=== PATIENT | male | born 1980 | race Caucasian/White ===

== ENCOUNTER 2017-03-27 22:04 | Inpatient (IN) | payer OTHER ==
[~2017-03-27] VITALS: Ht 182.9 cm; Wt 76.7 kg
[2017-03-27 23:10] VITALS: BP 99/60; PULSE 69; RESP 18
[2017-03-28] MEDS ORDERED: VANCOMYCIN IV PER PHARMACY XX SCH (00:30)
[2017-03-28] MEDS ORDERED: ACETAMINOPHEN 325 MG TAB PO PRN (00:30)
[2017-03-28] MEDS ORDERED: IBUPROFEN 400 MG TAB PO PRN (00:30)
[2017-03-28] MEDS ORDERED: ONDANSETRON 4 MG INJ IV PRN (00:30)
[2017-03-28] MEDS ORDERED: morphine 10 MG INJ IM PRN (00:30)
[2017-03-28] MEDS ORDERED: PIPER-TAZO 3.375 GM IV (PMX) 100 ML IVPB SCH ×2 (01:00→02:00)
[2017-03-28 02:00] VITALS: BP 123/52; RESP 19
[2017-03-28] MEDS ORDERED: VANCOMYCIN 1.5 GM in SOD CHLORIDE 0.9% 250 ML IVPB SCH (03:00)
[2017-03-28] MEDS: morphine 2 MG INJ IV PRN ×2 (04:16→14:22)
[2017-03-28 06:31] LABS: BASOPHILS % 0.3 % (0.0-2.0); EOSINOPHILS # 0.3 10^3/ul (0.0-0.5); EOSINOPHILS % 2.8 % (0.0-7.0); HEMATOCRIT 34.2 % (42.0-52.0); HEMOGLOBIN 11.3 g/dl (14.0-18.0); LYMPHOCYTES # 2.9 10^3/ul (0.8-2.9); LYMPHOCYTES % 31.3 % (15.0-51.0); MEAN CORPUSCULAR HEMOGLOBIN 29.1 pg (29.0-33.0); MEAN CORPUSCULAR VOLUME 88.1 fl (82.0-101.0); MEAN PLATELET VOLUME 10.3 fl (7.4-10.4); MONOCYTE # 0.9 10^3/ul (0.3-0.9); MONOCYTES % 9.4 % (0.0-11.0); NEUTROPHILS % 56.1 % (39.0-77.0); PLATELET COUNT 260 10^3/UL (140-415); RED BLOOD COUNT 3.88 10^6/ul (4.70-6.10); RED CELL DISTRIBUTION WIDTH 13.2 % (11.5-14.5); WHITE BLOOD COUNT 9.3 10^3/ul (4.8-10.8)
[2017-03-28 07:06] LABS: CALCIUM 8.4 mg/dl (8.4-10.2); CREATININE 0.77 mg/dl (0.61-1.24); POTASSIUM 3.6 mmol/L (3.5-5.1)
[2017-03-28 07:40] VITALS: BP 104/56; RESP 16
[2017-03-28] MEDS ORDERED: FAMOTIDINE 20 MG INJ IV SCH (09:00)
[2017-03-28] MEDS: PIPER-TAZO 3.375 GM IV (PMX) 100 ML IVPB SCH ×3 (09:33→21:36)
[2017-03-28] MEDS: DOCUSATE SODIUM 100 MG CAP PO SCH ×2 (09:33→21:35)
[2017-03-28] MEDS: VANCOMYCIN 1 GM in NS 250 ML IVPB SCH ×2 (11:58→18:00)
--- NOTE | 2017-03-28 12:44 | HP ---
Date/Time of Note Date/Time of Note DATE: 03/28/17 TIME: 12:29 Assessment/Plan VTE Prophylaxis VTE Prophylaxis Intervention: SCD's Lines/Catheters IV Catheter Type (from [facility] Saline Lock Urinary Cath still in place: No Assessment/Plan Chief Complaint/Hosp Course 1. Cellulitis right foot. Numerous wounds right foot. 2. Cellulitis left foot. Numerous wounds left foot. 3. Bipolar disorder type I. 4. Anemia 5. Active Methamphetamine abuse. Problems: Assessment/Plan 1. CT scan both feet 2. Dr Asha Quintanilla for podiatric consult 3. Wound care per hospital protocol 4. telepsych. 5. Zyprexa and wellbutrin XL for bipolar disorder, pt consent was obtained HPI/ROS Admit Date/Time Admit Date/Time Mar 27, 2017 at 23:10 Hx of Present Illness 36 yo male with history of crystal meth abuse for 8 years presented himself in ED [facility]. He was evaluated and transferred to [facility] per insurance coverage. Pt reported that 03/24 he start feeling pain in right foot. He denied trauma, however did not exclude it because he might be high on drugs. Upon presenting to [facility] ER he reported foot ededma, pain and gait imbalance. His left foot has similar wounds and pain, started 1 week ago. denied any trauma. 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 ROS Eyes: no complaints, pain, No discharge, No other, No redness, No visual change ENT: bleeding, no complaints, pain, No congestion, No discharge, No dysphagia, No other, No sore throat Respiratory: cough, no complaints, No other, No pain, No pleuritic pain, No shortness of breath, No sputum, No wheezing Cardiovascular: chest pain, edema, no complaints, No lightheadedness, No orthopenea, No other, No palpitations, No paroxysmal nocturnal dyspnea Gastrointestinal: diarrhea, no complaints, No blood, No constipation, No decreased appetite, No flatus, No nausea, No other, No pain, No passing stool, No vomiting Genitourinary: dysuria, no complaints, No bleeding, No discharge, No flank pain, No hematuria, No other Musculoskeletal: back pain, bone/joint pain, neck pain, no complaints, other, restricted range of motion (both feet), swelling (both feet) Endocrine: polydypsia, polyuria, temp intolerance, No dry skin, No no complaints, No other, No weight change Lymphatic: adenopathy, tender nodes, No lymphadema, No no complaints, No other Psychological: anxiety, confusion, depression, nl mood/affect, no complaints, other, suicidal Immunologic: immunodeficiency, pruritis, No no complaints, No other, No rhinitis, No urticaria PMH/Family/Social Past Medical History pt is single, has no children Medical History: no pertinent history Past Surgical History Past Surgical Hx: other (in young age after dog bit his face he had some suturing on the right side of the face) Family History Significant Family History: no pertinent family hx Social History Alcohol Use: none Smoking Status: Never smoker Drug Use: other (crystal meth smoking) Exam/Review of Systems Vital Signs Vitals Vital Signs Date Time Temp Pulse Resp B/P Pulse Ox O2 Delivery O2 Flow Rate FiO2 03/28/17 07:40 98.5 55 16 104/56 97 03/27/17 23:10 Room Air Intake and Output 03/27/17 03/27/17 03/28/17 15:00 23:00 07:00 Intake Total 1060 ml Output Total 900 ml Balance 160 ml Exam Constitutional: alert, oriented, well developed Psych: depression Head: atraumatic, normocephalic Eyes: EOMI, nl conjunctiva, nl lids ENMT: nl external ears & nose, nl lips & teeth Neck: jvd, supple Respiratory: clear to auscultation, normal air movement Cardiovascular: nl pulses, regular rate and rhythm Gastrointestinal: soft Genitourinary - Male: nl penis, nl scrotum Musculoskeletal: joint tenderness (both ancles), range of motion (decreased ancles and feet), swelling (both feet) Neurological: WEIGHT GUESSER II-XII intact, nl mental status, nl speech, nl strength Skin: nl turgor Labs Result Diagram: 03/28/1744903/28/17449 Medications Medications Current Medications Acetaminophen (Tylenol Tab) 650 mg Q4H PRN PO for pain 1-4 or fever; Start at 00:30 Ibuprofen (Motrin) 400 mg Q4 PRN PO for pain 4-7; Start 03/28/17 at 00:30 Ondansetron HCl (Zofran Inj) 4 mg Q4H PRN IV NAUSEA AND/OR VOMITING; Start at 00:30 Famotidine (Pepcid Iv) 20 mg BID IV Last administered on 03/28/17 09:33; Admin Dose 20 MG; Start 03/28/17 at 09:00 Docusate Sodium 100 mg 100 mg BID PO Last administered on 03/28/17 09:33; Admin Dose 100 MG; Start 03/28/17 at 09:00 Vancomycin HCl 250 ml @ 125 mls/hr Q8H IVPB Last administered on 03/28/17 11: 58; Admin Dose 125 MLS/HR; Start 03/28/17 at 11:00 Piperacillin Sod/ Tazobactam Sod (Zosyn 3.375gm/ 100 ml (Pmx)) 100 ml @ 200 mls /hr Q8 IVPB Last administered on 03/28/17 09:33; Admin Dose 200 MLS/HR; Start 03/28/17 at 06:00 Morphine Sulfate (morphine) 2 mg Q4H PRN IV PAIN LEVEL 8-10 Last administered on 03/28/17 04:16; Admin Dose 2 MG; Start 03/28/17 at 04:30 Miscellaneous Information (*Rx Drug Level Order Reminder*) VANCOMYCIN TROUGH AT 0200 ONCE ONCE XX ; Start 03/29/17 at 02:00; Stop 03/29/17 at 02:01 CHRISSY GREENE Mar 28, 2017 12:41
[2017-03-28] MEDS: BUSPIRONE 5 MG TAB PO SCH ×2 (13:53→21:35)
[2017-03-28] MEDS: BUPROPION (XL) 150 MG TAB PO SCH (13:53)
[2017-03-28 14:25] VITALS: BP 109/55; RESP 16
[2017-03-28 20:43] VITALS: BP 121/61; RESP 18
[2017-03-28] MEDS: OLANZAPINE 5 MG TAB PO SCH (21:35)
[2017-03-28] MEDS: FAMOTIDINE 20 MG TAB PO SCH (21:35)
[2017-03-29 03:04] VITALS: BP 116/61; RESP 16
[2017-03-29] MEDS: VANCOMYCIN 1 GM in NS 250 ML IVPB SCH ×3 (03:22→21:37)
[2017-03-29] MEDS: PIPER-TAZO 3.375 GM IV (PMX) 100 ML IVPB SCH ×3 (05:48→21:38)
[2017-03-29 06:33] LABS: CALCIUM 9.2 mg/dl (8.4-10.2); CREATININE 0.78 mg/dl (0.61-1.24)
[2017-03-29 08:00] VITALS: BP_SYST 110; BP_SYST 118; BP_DIAS 64; RESP 18
[2017-03-29 08:51] LABS: BASOPHILS % 0.3 % (0.0-2.0); EOSINOPHILS # 0.2 10^3/ul (0.0-0.5); EOSINOPHILS % 1.8 % (0.0-7.0); HEMATOCRIT 35.7 % (42.0-52.0); HEMOGLOBIN 11.7 g/dl (14.0-18.0); LYMPHOCYTES # 2.8 10^3/ul (0.8-2.9); LYMPHOCYTES % 24.9 % (15.0-51.0); MEAN CORPUSCULAR HEMOGLOBIN 29.3 pg (29.0-33.0); MEAN CORPUSCULAR HGB CONC 32.8 g/dl (32.0-37.0); MEAN CORPUSCULAR VOLUME 89.3 fl (82.0-101.0); MEAN PLATELET VOLUME 10.4 fl (7.4-10.4); MONOCYTE # 0.9 10^3/ul (0.3-0.9); MONOCYTES % 7.7 % (0.0-11.0); NEUTROPHILS % 64.9 % (39.0-77.0); PLATELET COUNT 259 10^3/UL (140-415); RED CELL DISTRIBUTION WIDTH 13.3 % (11.5-14.5); WHITE BLOOD COUNT 11.4 10^3/ul (4.8-10.8)
[2017-03-29] MEDS: OLANZAPINE 5 MG TAB PO SCH (08:58)
[2017-03-29] MEDS: BUPROPION (XL) 150 MG TAB PO SCH (08:58)
[2017-03-29] MEDS: DOCUSATE SODIUM 100 MG CAP PO SCH ×2 (08:58→21:37)
[2017-03-29] MEDS: BUSPIRONE 5 MG TAB PO SCH ×2 (08:58→21:37)
[2017-03-29] MEDS: FAMOTIDINE 20 MG TAB PO SCH ×2 (09:35→21:37)
--- NOTE | 2017-03-29 11:53 | RADRPT ---
PROCEDURE: CT of the bilateral lower extremities CLINICAL INDICATION: Lower extremity pain and swelling, concern for cellulitis TECHNIQUE: Axial images through the bilateral lower extremities without IV contrast. Coronal and sagittal reformats. Images were interpreted at an independent PACS workstation. CTDI 18.48 mGy DLP 105 3.47 mGy-cm One or more of the following dose reduction techniques were used: Automated exposure control Adjustment of the mA and / or kV according to patient size Use of iterative reconstruction technique. COMPARISON: None available FINDINGS: There is mild to moderate nonspecific subcutaneous soft tissue swelling involving the right greater than left lower calf , ankle, and foot (axial 158). There is no evidence of soft tissue gas. There is no discrete drainable fluid collection on this noncontrast CT. There is no CT evidence of acute fracture. Alignment appears normal. Bone mineralization is normal . There is no muscle atrophy. IMPRESSION: 1. Mild to moderate right greater than left subcutaneous soft tissue swelling at the lower calf, an kle and foot. Query cellulitis. 2. No evidence of soft tissue gas or drainable fluid collection on this noncontrast CT. 3. No acute osseous abnormality or CT evidence of osteomyelitis. RPTAT: UU .Vasiliy Black MD, MD Date Time Electronically viewed and signed by .Vasiliy Black MD, on 03/29/2017 11:53 .K/
[2017-03-29] MEDS: morphine 2 MG INJ IV PRN ×3 (13:05→22:38)
[2017-03-29 14:24] VITALS: BP 110/59; RESP 16
--- NOTE | 2017-03-29 18:46 | PN ---
Date/Time of Note Date/Time of Note DATE: 03/29/17 TIME: 18:45 Assessment/Plan VTE Prophylaxis VTE Prophylaxis Intervention: ambulation, contraindicated Lines/Catheters IV Catheter Type (from Nrs): Peripheral IV Urinary Cath still in place: No Assessment/Plan Chief Complaint/Hosp Course 1 Cellulitis right foot. Numerous wounds right foot. 2. Cellulitis left foot. Numerous wounds left foot. 3. Bipolar disorder type I. 4. Anemia 5. Active Methamphetamine abuse. Problems: Assessment/Plan 1. CT scan negative for abscess or OM 2. Dr Asha Quintanilla for podiatric consult 3. Wound care per hospital protocol 4. telepsych. 5. Zyprexa and wellbutrin XL for bipolar disorder, 6 I.D consult Problems: Subjective 24 Hr Interval Summary Free Text/Dictation Pain improving Exam/Review of Systems Vital Signs Vitals Vital Signs Date Time Temp Pulse Resp B/P Pulse Ox O2 Delivery O2 Flow Rate FiO2 03/29/17 14:24 98.6 61 16 110/59 95 03/27/17 23:10 Room Air Intake and Output 03/28/17 03/28/17 03/29/17 15:00 23:00 07:00 Intake Total 350 ml 1440 ml 1030 ml Output Total 1500 ml Balance 350 ml 1440 ml -470 ml Exam Constitutional: alert Head: normocephalic Neck: supple Respiratory: clear to auscultation Cardiovascular: regular rate and rhythm Musculoskeletal: other (ble wrapped) Results Result Diagram: 03/29/17 0440 03/29/17 0440 Results 24 hrs Laboratory Tests Test 03/29/17 02:00 03/29/17 04:40 Vancomycin Level Trough 10.7 White Blood Count 11.4 #H Red Blood Count 4.00 L Hemoglobin 11.7 L Hematocrit 35.7 L Mean Corpuscular Volume 89.3 Mean Corpuscular Hemoglobin 29.3 Mean Corpuscular Hemoglobin Concent 32.8 Red Cell Distribution Width 13.3 Platelet Count 259 Mean Platelet Volume 10.4 Neutrophils % 64.9 Lymphocytes % 24.9 Monocytes % 7.7 Eosinophils % 1.8 Basophils % 0.3 Nucleated Red Blood Cells % 0.0 Neutrophils # (Manual) 7 Lymphocytes # 2.8 Monocytes # 0.9 Eosinophils # 0.2 Basophils # 0.0 Nucleated Red Blood Cells # 0.0 Sodium Level 144 Potassium Level 4.0 Chloride Level 100 Carbon Dioxide Level 30 Anion Gap 18 H Blood Urea Nitrogen 7 Creatinine 0.78 Glucose Level 86 Calcium Level 9.2 Medications Medications Current Medications Acetaminophen (Tylenol Tab) 650 mg Q4H PRN PO for pain 1-4 or fever; Start at 00:30 Ibuprofen (Motrin) 400 mg Q4 PRN PO for pain 4-7; Start 03/28/17 at 00:30 Ondansetron HCl (Zofran Inj) 4 mg Q4H PRN IV NAUSEA AND/OR VOMITING; Start at 00:30 Docusate Sodium 100 mg 100 mg BID PO Last administered on 03/29/17 08:58; Admin Dose 100 MG; Start 03/28/17 at 09:00 Piperacillin Sod/ Tazobactam Sod (Zosyn 3.375gm/ 100 ml (Pmx)) 100 ml @ 200 mls /hr Q8 IVPB Last administered on 03/29/17 16:03; Admin Dose 200 MLS/HR; Start 03/28/17 at 06:00 Morphine Sulfate (morphine) 2 mg Q4H PRN IV PAIN LEVEL 8-10 Last administered on 03/29/17 17:45; Admin Dose 2 MG; Start 03/28/17 at 04:30 Olanzapine (Zyprexa) 10 mg DAILY PO Last administered on 03/29/17 08:58; Admin Dose 10 MG; Start 03/28/17 at 21:00 Bupropion HCl (Wellbutrin Xl) 150 mg DAILY PO Last administered on 03/29/17 08 :58; Admin Dose 150 MG; Start 03/28/17 at 13:00 Buspirone HCl (Buspar) 5 mg BID PO Last administered on 03/29/17 08:58; Admin Dose 5 MG; Start 03/28/17 at 14:00 Famotidine (Pepcid) 20 mg BID PO Last administered on 03/29/17 09:35; Admin Dose 20 MG; Start 03/28/17 at 21:00 Mupirocin 1 applic 1 applic BID TOP ; Start 03/29/17 at 21:00 Vancomycin HCl (Vancocin) 250 ml @ 125 mls/hr Q8H IVPB ; Start 03/29/17 at 21: 00 SUKHDEV TRAN MD Mar 29, 2017 18:46
[2017-03-29 20:54] VITALS: BP 111/55; RESP 22
[2017-03-29] MEDS: MUPIROCIN 2% 22 GM OINT TOP SCH (21:37)
[2017-03-30 03:00] VITALS: BP 105/59; RESP 19
[2017-03-30] MEDS: VANCOMYCIN 1 GM in NS 250 ML IVPB SCH ×3 (05:06→20:58)
[2017-03-30 05:40] LABS: BASOPHILS % 0.5 % (0.0-2.0); EOSINOPHILS # 0.3 10^3/ul (0.0-0.5); EOSINOPHILS % 3.2 % (0.0-7.0); HEMATOCRIT 35.3 % (42.0-52.0); HEMOGLOBIN 11.5 g/dl (14.0-18.0); LYMPHOCYTES # 2.8 10^3/ul (0.8-2.9); LYMPHOCYTES % 33.3 % (15.0-51.0); MEAN CORPUSCULAR HEMOGLOBIN 28.8 pg (29.0-33.0); MEAN CORPUSCULAR HGB CONC 32.6 g/dl (32.0-37.0); MEAN CORPUSCULAR VOLUME 88.5 fl (82.0-101.0); MEAN PLATELET VOLUME 10.2 fl (7.4-10.4); MONOCYTE # 0.7 10^3/ul (0.3-0.9); MONOCYTES % 8.6 % (0.0-11.0); PLATELET COUNT 257 10^3/UL (140-415); RED BLOOD COUNT 3.99 10^6/ul (4.70-6.10); RED CELL DISTRIBUTION WIDTH 13.2 % (11.5-14.5); WHITE BLOOD COUNT 8.5 10^3/ul (4.8-10.8)
[2017-03-30 06:16] LABS: CALCIUM 8.9 mg/dl (8.4-10.2); CREATININE 0.84 mg/dl (0.61-1.24); POTASSIUM 3.7 mmol/L (3.5-5.1)
[2017-03-30] MEDS: PIPER-TAZO 3.375 GM IV (PMX) 100 ML IVPB SCH ×3 (07:05→23:25)
[2017-03-30] MEDS: BUPROPION (XL) 150 MG TAB PO SCH (08:10)
[2017-03-30] MEDS: BUSPIRONE 5 MG TAB PO SCH ×2 (08:10→20:58)
[2017-03-30] MEDS: DOCUSATE SODIUM 100 MG CAP PO SCH ×2 (08:10→20:58)
[2017-03-30] MEDS: OLANZAPINE 5 MG TAB PO SCH ×2 (08:10→21:04)
[2017-03-30] MEDS: morphine 2 MG INJ IV PRN ×3 (08:11→22:09)
[2017-03-30] MEDS: MUPIROCIN 2% 22 GM OINT TOP SCH ×2 (08:11→20:59)
[2017-03-30] MEDS: FAMOTIDINE 20 MG TAB PO SCH ×2 (08:11→20:58)
[2017-03-30 10:57] VITALS: BP 113/57; RESP 18
--- NOTE | 2017-03-30 15:09 | PN ---
Date/Time of Note Date/Time of Note DATE: 03/30/17 TIME: 15:04 Assessment/Plan VTE Prophylaxis VTE Prophylaxis Intervention: LMWH Lines/Catheters IV [facility] Type (from [facility]): Saline Lock Urinary Cath still in place: No Assessment/Plan Chief Complaint/Hosp Course Physcial exam Constitutional: alert Head: normocephalic Neck: supple Respiratory: clear to auscultation Cardiovascular: regular rate and rhythm Musculoskeletal: Rt foot warm, tender, well circumscribed wound between between 1st and 2metatarsal, left foot 1st metatarsal and 2 wound 36 y/o with 1 Cellulitis right foot. with wound inside 1st and 2nd metatarsal 2. Cellulitis left foot+1 st metatar 3. Bipolar disorder type I. 4. Anemia 5. Active Methamphetamine abuse. Problems: Assessment/Plan 1. CT scan negative for abscess or OM 2. On iv Vanco/zosyn 3. Wound care per hospital protocol 4. telepsych. 5. Zyprexa and wellbutrin XL for bipolar disorder, 6 Pending ID recs Problems: Subjective 24 Hr Interval Summary Free Text/Dictation Pain in rt foot more >left Exam/Review of Systems Vital Signs Vitals Vital Signs Date Time Temp Pulse Resp B/P Pulse Ox O2 Delivery O2 Flow Rate FiO2 03/30/17 10:57 97.9 53 18 113/57 96 03/27/17 23:10 Room Air Intake and Output 03/29/17 03/29/17 03/30/17 15:00 23:00 07:00 Intake Total 3540 ml 1210 ml Output Total 950 ml 1500 ml 680 ml Balance -950 ml 2040 ml 530 ml Results Result Diagram: 03/30/17 0455 03/30/17 0455 Results 24 hrs Laboratory Tests Test 03/30/17 04:55 White Blood Count 8.5 # Red Blood Count 3.99 L Hemoglobin 11.5 L Hematocrit 35.3 L Mean Corpuscular Volume 88.5 Mean Corpuscular Hemoglobin 28.8 L Mean Corpuscular Hemoglobin Concent 32.6 Red Cell Distribution Width 13.2 Platelet Count 257 Mean Platelet Volume 10.2 Neutrophils % 54.0 Lymphocytes % 33.3 Monocytes % 8.6 Eosinophils % 3.2 Basophils % 0.5 Nucleated Red Blood Cells % 0.0 Neutrophils # (Manual) 5 Lymphocytes # 2.8 Monocytes # 0.7 Eosinophils # 0.3 Basophils # 0.0 Nucleated Red Blood Cells # 0.0 Sodium Level 142 Potassium Level 3.7 Chloride Level 105 Carbon Dioxide Level 29 Anion Gap 12 Blood Urea Nitrogen 11 Creatinine 0.84 Glucose Level 95 Calcium Level 8.9 Medications Medications Current Medications Acetaminophen (Tylenol Tab) 650 mg Q4H PRN PO for pain 1-4 or fever; Start at 00:30 Ibuprofen (Motrin) 400 mg Q4 PRN PO for pain 4-7; Start 03/28/17 at 00:30 Ondansetron HCl (Zofran Inj) 4 mg Q4H PRN IV NAUSEA AND/OR VOMITING; Start at 00:30 Docusate Sodium 100 mg 100 mg BID PO Last administered on 03/30/17 08:10; Admin Dose 100 MG; Start 03/28/17 at 09:00 Piperacillin Sod/ Tazobactam Sod (Zosyn 3.375gm/ 100 ml (Pmx)) 100 ml @ 200 mls /hr Q8 IVPB Last administered on 03/30/17 07:05; Admin Dose 200 MLS/HR; Start 03/28/17 at 06:00 Morphine Sulfate (morphine) 2 mg Q4H PRN IV PAIN LEVEL 8-10 Last administered on 03/30/17 08:11; Admin Dose 2 MG; Start 03/28/17 at 04:30 Bupropion HCl (Wellbutrin Xl) 150 mg DAILY PO Last administered on 03/30/17 08 :10; Admin Dose 150 MG; Start 03/28/17 at 13:00 Buspirone HCl (Buspar) 5 mg BID PO Last administered on 03/30/17 08:10; Admin Dose 5 MG; Start 03/28/17 at 14:00 Famotidine (Pepcid) 20 mg BID PO Last administered on 03/30/17 08:11; Admin Dose 20 MG; Start 03/28/17 at 21:00 Mupirocin 1 applic 1 applic BID TOP Last administered on 03/30/17 08:11; Admin Dose 1 APPLIC; Start 03/29/17 at 21:00 Vancomycin HCl (Vancocin) 250 ml @ 125 mls/hr Q8H IVPB Last administered on 12:14; Admin Dose 125 MLS/HR; Start 03/29/17 at 21:00 Olanzapine (Zyprexa) 10 mg QHS PO ; Start 03/30/17 at 21:00 SUKHDEV TRAN MD Mar 30, 2017 15:08
[2017-03-30] MEDS: ENOXAPARIN 40 MG/0.4 ML SYG SC SCH (15:45)
[2017-03-30 17:09] VITALS: BP 102/57; RESP 20
--- NOTE | 2017-03-30 17:37 | RADRPT ---
PROCEDURE: US Lower extremity arterial. CLINICAL INDICATION: peripheral arterial disease, claudication, leg pain TECHNIQUE: Multiple sonographic images of the bilateral lower extremity arteries were obtained uti lizing grayscale, color-flow and doppler imaging. The images were reviewed on a PACS workstation. COMPARISON: None. FINDINGS: There is no significant calcific plaque. Velocities and waveforms were obtained as described below. RIGHT LEG: Right common femoral artery: 148 cm/s; triphasic waveforms Right proximal superficial femoral artery: 123.4 cm/s; triphasic waveforms Right mid superficial femoral artery: 103.2 cm/s; triphasic waveforms Right distal superficial femoral artery: 96.9 cm/s; triphasic waveforms Right popliteal artery: 78 cm/s; triphasic waveforms Right posterior tibial artery: 87 cm/s; triphasic waveforms Right dorsalis pedis artery: 88 cm/s; triphasic waveforms Right DOLORES: 1.18 LEFT LEG: Left common femoral artery: 125 cm/s; triphasic waveforms Left proximal superficial femoral artery: 130.1 cm/s; triphasic waveforms Left mid superficial femoral artery: 110.1 cm/s; triphasic waveforms Left distal superficial femoral artery: 84.5 cm/s; triphasic waveforms Left popliteal artery: 71 cm/s; triphasic waveforms Left posterior tibial artery: 112 cm/s; triphasic waveforms Left dorsalis pedis artery: 66 cm/s; triphasic waveforms Left DOLORES: 1.18 RPTAT: AA IMPRESSION: Unremarkable bilateral lower extremity arterial Doppler ultrasound. .Alen Tamez MD, MD Date Time Electronically viewed and signed by .Alen Tamez MD, MD on 03/30/2017 17:37 .S/
[2017-03-30 20:18] VITALS: BP 114/53; RESP 21
--- NOTE | 2017-03-30 23:34 | CONS ---
Date/Time of Note Date/Time of Note DATE: 03/30/17 TIME: 23:33 Consultation Date/Type/Reason Admit Date/Time Mar 27, 2017 at 23:10 Eyes: no complaints, pain, No discharge, No other, No redness, No visual change ENT: bleeding, no complaints, pain, No congestion, No discharge, No dysphagia, No other, No sore throat Respiratory: cough, no complaints, No other, No pain, No pleuritic pain, No shortness of breath, No sputum, No wheezing Cardiovascular: chest pain, edema, no complaints, No lightheadedness, No orthopenea, No other, No palpitations, No paroxysmal nocturnal dyspnea Gastrointestinal: diarrhea, no complaints, No blood, No constipation, No decreased appetite, No flatus, No nausea, No other, No pain, No passing stool, No vomiting Genitourinary: dysuria, no complaints, No bleeding, No discharge, No flank pain, No hematuria, No other Musculoskeletal: back pain, bone/joint pain, neck pain, no complaints, other, restricted range of motion (both feet), swelling (both feet) Lymphatic: adenopathy, tender nodes, No lymphadema, No no complaints, No other Psychological: depression Immunologic: immunodeficiency, pruritis, No no complaints, No other, No rhinitis, No urticaria Past Medical History Medical History: no pertinent history Past Surgical History Past Surgical Hx: other (in young age after dog bit his face he had some suturing on the right side of the face) Social History Alcohol Use: none Smoking Status: Never smoker Drug Use: other (crystal meth smoking) Exam/Review of Systems Vital Signs Vitals Vital Signs Date Time Temp Pulse Resp B/P Pulse Ox O2 Delivery O2 Flow Rate FiO2 03/30/17 20:18 98.4 57 21 114/53 94 03/27/17 23:10 Room Air Intake and Output 03/29/17 03/29/17 03/30/17 15:00 23:00 07:00 Intake Total 3540 ml 1210 ml Output Total 950 ml 1500 ml 680 ml Balance -950 ml 2040 ml 530 ml Results Result Diagram: 03/30/17 0455 03/30/17 0455 Results 24 hrs Laboratory Tests Test 03/30/17 04:55 White Blood Count 8.5 # Red Blood Count 3.99 L Hemoglobin 11.5 L Hematocrit 35.3 L Mean Corpuscular Volume 88.5 Mean Corpuscular Hemoglobin 28.8 L Mean Corpuscular Hemoglobin Concent 32.6 Red Cell Distribution Width 13.2 Platelet Count 257 Mean Platelet Volume 10.2 Neutrophils % 54.0 Lymphocytes % 33.3 Monocytes % 8.6 Eosinophils % 3.2 Basophils % 0.5 Nucleated Red Blood Cells % 0.0 Neutrophils # (Manual) 5 Lymphocytes # 2.8 Monocytes # 0.7 Eosinophils # 0.3 Basophils # 0.0 Nucleated Red Blood Cells # 0.0 Sodium Level 142 Potassium Level 3.7 Chloride Level 105 Carbon Dioxide Level 29 Anion Gap 12 Blood Urea Nitrogen 11 Creatinine 0.84 Glucose Level 95 Calcium Level 8.9 Medications Medications Current Medications Acetaminophen (Tylenol Tab) 650 mg Q4H PRN PO for pain 1-4 or fever; Start at 00:30 Ibuprofen (Motrin) 400 mg Q4 PRN PO for pain 4-7; Start 03/28/17 at 00:30 Ondansetron HCl (Zofran Inj) 4 mg Q4H PRN IV NAUSEA AND/OR VOMITING; Start at 00:30 Docusate Sodium 100 mg 100 mg BID PO Last administered on 03/30/17 20:58; Admin Dose 100 MG; Start 03/28/17 at 09:00 Piperacillin Sod/ Tazobactam Sod (Zosyn 3.375gm/ 100 ml (Pmx)) 100 ml @ 200 mls /hr Q8 IVPB Last administered on 03/30/17 23:25; Admin Dose 200 MLS/HR; Start 03/28/17 at 06:00 Morphine Sulfate (morphine) 2 mg Q4H PRN IV PAIN LEVEL 8-10 Last administered on 03/30/17 22:09; Admin Dose 2 MG; Start 03/28/17 at 04:30 Bupropion HCl (Wellbutrin Xl) 150 mg DAILY PO Last administered on 03/30/17 08 :10; Admin Dose 150 MG; Start 03/28/17 at 13:00 Buspirone HCl (Buspar) 5 mg BID PO Last administered on 03/30/17 20:58; Admin Dose 5 MG; Start 03/28/17 at 14:00 Famotidine (Pepcid) 20 mg BID PO Last administered on 03/30/17 20:58; Admin Dose 20 MG; Start 03/28/17 at 21:00 Mupirocin 1 applic 1 applic BID TOP Last administered on 03/30/17 20:59; Admin Dose 1 APPLIC; Start 03/29/17 at 21:00 Vancomycin HCl (Vancocin) 250 ml @ 125 mls/hr Q8H IVPB Last administered on 20:58; Admin Dose 125 MLS/HR; Start 03/29/17 at 21:00 Olanzapine (Zyprexa) 10 mg QHS PO Last administered on 03/30/17 21:04; Admin Dose 10 MG; Start 03/30/17 at 21:00 Enoxaparin Sodium (Lovenox) 40 mg DAILY SC Last administered on 03/30/17 15:45 ; Admin Dose 40 MG; Start 03/30/17 at 15:30 PRADIP LOVE DPM Mar 30, 2017 23:33
[2017-03-31 02:59] VITALS: BP 103/59; RESP 18
--- NOTE | 2017-03-31 03:22 | CONS ---
DATE OF ADMISSION: 03/27/2017 DATE OF CONSULTATION: 03/30/2017 REASON FOR CONSULTATION: Antibiotic management. HISTORY OF PRESENT ILLNESS: Galileo De Santiago a 36-year-old male who is admitted with cellulitis of the right foot and is being seen for antibiotic management. The patient is a 36-year-old with a history of crystal methamphetamine abuse for 8 years. He presented to [facility] and transferred to [facility] for insurance coverage. He started feeling pain in his right foot. He denied trauma. He presented to [facility] emergency room with edema of his foot with pain and imbalance. He is found to have cellulitis of the right foot with numerous wounds, cellulitis of the left foot as well. Additional problems include bipolar disorder, anemia, and active methamphetamine abuse. Dr. Guillermo Barry was asked to see him for podiatric consultation. Had a CT scan of both feet. PAST MEDICAL HISTORY: Operations as outlined. FAMILY HISTORY: Noncontributory. SOCIAL HISTORY: He does not smoke, but he does use crystal meth. ALLERGIES: NONE TO PENICILLIN, SULFA, OR FOODS. MEDICATION: Per chart. REVIEW OF SYSTEMS: As per HPI. PHYSICAL EXAMINATION: GENERAL: The patient is well developed, well-nourished male, who is sleeping but arousable, in no acute distress. VITAL SIGNS: Stable. He is afebrile. SKIN: Without generalized rash. HEENT: Within normal limits. NECK: Supple. Lymph nodes are nonpalpable. CHEST: Decreased breath sounds at the bases. HEART: Without murmur or gallop. ABDOMEN: Soft and nontender without organosplenomegaly or masses. EXTREMITIES: He has joint tenderness in both ankles and swelling of both feet. RECTAL: Deferred. NEUROLOGICAL: No focal neurological abnormalities. DIAGNOSTICS: His white count was 9.3, H and H of 11.3 and 34.2, platelet count 260,000. BUN and creatinine is 10/0.77. A lower extremity CT scan showed mild to moderate right greater than left subcutaneous soft tissue swelling of the lower calf, ankle, and foot, query cellulitis. No evidence of soft tissue gas or drainable fluid collection. No acute osseous abnormality or CT evidence of osteomyelitis. White count is 8.5 today. Toxicology, patient is on vancomycin. BUN and creatinine is 11/0.84. PLAN: His medications include vancomycin and Zosyn. We will continue him on this regimen. I will dictate my findings to the hospitalist and also to Dr. Davis and to Jerri Vargas. Dictated By: Alton Moser MD JD/bridget/pan /Document#: [id number]
[2017-03-31] MEDS: VANCOMYCIN 1 GM in NS 250 ML IVPB SCH ×3 (04:19→20:49)
[2017-03-31] MEDS: PIPER-TAZO 3.375 GM IV (PMX) 100 ML IVPB SCH ×3 (06:35→23:22)
[2017-03-31] MEDS: BUSPIRONE 5 MG TAB PO SCH ×2 (08:43→20:49)
[2017-03-31] MEDS: FAMOTIDINE 20 MG TAB PO SCH ×2 (08:43→20:49)
[2017-03-31] MEDS: DOCUSATE SODIUM 100 MG CAP PO SCH ×2 (08:43→20:49)
[2017-03-31] MEDS: BUPROPION (XL) 150 MG TAB PO SCH (08:43)
[2017-03-31] MEDS: ENOXAPARIN 40 MG/0.4 ML SYG SC SCH (08:46)
[2017-03-31] MEDS: MUPIROCIN 2% 22 GM OINT TOP SCH ×2 (08:48→20:50)
[2017-03-31 08:57] VITALS: BP 113/68; RESP 18
[2017-03-31] MEDS: morphine 2 MG INJ IV PRN ×3 (09:11→20:59)
[2017-03-31 14:08] VITALS: BP 121/74; RESP 20
--- NOTE | 2017-03-31 14:31 | PN ---
Date/Time of Note Date/Time of Note DATE: 03/31/17 TIME: 14:29 Assessment/Plan VTE Prophylaxis VTE Prophylaxis Intervention: LMWH Lines/Catheters IV Catheter Type (from Nrs): Saline Lock Urinary Cath still in place: No Assessment/Plan Chief Complaint/Hosp Course Physcial exam Constitutional: alert Head: normocephalic Neck: supple Respiratory: clear to auscultation Cardiovascular: regular rate and rhythm Musculoskeletal: Rt foot warm, tender, well circumscribed wound between between 1st and 2metatarsal, left foot 1st metatarsal and 2 wound 36 y/o with 1 Cellulitis right foot. with wound inside 1st and 2nd metatarsal 2. Cellulitis left foot+1 st metatar 3. Bipolar disorder type I. 4. Anemia 5. Active Methamphetamine abuse. Problems: Assessment/Plan 1. CT scan negative for abscess or OM 2. On iv Vanco, zosyn stopped 3. Wound care per hospital protocol 4. Zyprexa and wellbutrin XL for bipolar disorder, 6 Pending ID recs Problems: Subjective 24 Hr Interval Summary Free Text/Dictation No new complains See by Podiatry and ID Exam/Review of Systems Vital Signs Vitals Vital Signs Date Time Temp Pulse Resp B/P Pulse Ox O2 Delivery O2 Flow Rate FiO2 03/31/17 14:08 98.4 74 20 121/74 97 03/27/17 23:10 Room Air Intake and Output 03/30/17 03/30/17 03/31/17 15:00 23:00 07:00 Intake Total 600 ml 1310 ml 1070 ml Balance 600 ml 1310 ml 1070 ml Results Result Diagram: 03/30/17 0455 03/30/17 0455 Medications Medications Current Medications Acetaminophen (Tylenol Tab) 650 mg Q4H PRN PO for pain 1-4 or fever; Start at 00:30 Ibuprofen (Motrin) 400 mg Q4 PRN PO for pain 4-7; Start 03/28/17 at 00:30 Ondansetron HCl (Zofran Inj) 4 mg Q4H PRN IV NAUSEA AND/OR VOMITING; Start at 00:30 Docusate Sodium 100 mg 100 mg BID PO Last administered on 03/31/17t 08:43; Admin Dose 100 MG; Start 03/28/17 at 09:00 Piperacillin Sod/ Tazobactam Sod (Zosyn 3.375gm/ 100 ml (Pmx)) 100 ml @ 200 mls /hr Q8 IVPB Last administered on 03/31/17 06:35; Admin Dose 200 MLS/HR; Start 03/28/17 at 06:00 Morphine Sulfate (morphine) 2 mg Q4H PRN IV PAIN LEVEL 8-10 Last administered on 03/31/17 09:11; Admin Dose 2 MG; Start 03/28/17 at 04:30 Bupropion HCl (Wellbutrin Xl) 150 mg DAILY PO Last administered on 03/31/17 08 :43; Admin Dose 150 MG; Start 03/28/17 at 13:00 Buspirone HCl (Buspar) 5 mg BID PO Last administered on 03/31/17 08:43; Admin Dose 5 MG; Start 03/28/17 at 14:00 Famotidine (Pepcid) 20 mg BID PO Last administered on 03/31/17 08:43; Admin Dose 20 MG; Start 03/28/17 at 21:00 Mupirocin 1 applic 1 applic BID TOP Last administered on 03/31/17 08:48; Admin Dose 1 APPLIC; Start 03/29/17 at 21:00 Vancomycin HCl (Vancocin) 250 ml @ 125 mls/hr Q8H IVPB Last administered on 12:06; Admin Dose 125 MLS/HR; Start 03/29/17 at 21:00 Olanzapine (Zyprexa) 10 mg QHS PO Last administered on 03/30/17 21:04; Admin Dose 10 MG; Start 03/30/17 at 21:00 Enoxaparin Sodium (Lovenox) 40 mg DAILY SC Last administered on 03/31/17 08:46 ; Admin Dose 40 MG; Start 03/30/17 at 15:30 Miscellaneous Information (*Rx Drug Level Order Reminder*) VANCOMYCIN TROUGH ON 03/11... ONCE ONCE XX ; Start 04/01/17 at 04:00; Stop 04/01/17 at 04:01 SUKHDEV TRAN MD Mar 31, 2017 14:31
--- NOTE | 2017-03-31 20:12 | PN ---
DATE: 03/31/2017 SUBJECTIVE DATA: No events overnight. The patient is alert, complaining of right lower extremity pain. No fevers. WBC yesterday was 8.5, no shift, no bands. BUN 11, creatinine 0.84. Microbiology: Nares swab came back positive for MRSA. Antimicrobials: Vancomycin, Zosyn, topical Bactroban. Diagnostics: Lower extremity CT scan revealed mild to moderate right, greater than left, subcutaneous soft tissue swelling at the lower calf, ankle and foot. No evidence of soft tissue gas or drainable fluid collection. No acute osseus abnormality, or CT scan evidence of osteomyelitis. PHYSICAL EXAMINATION: GENERAL: Well developed, well nourished, middle-aged man who is alert, in no distress. HEENT: Head atraumatic, normocephalic. Sclerae anicteric. Buccal mucosa pink. NECK: Supple. CHEST: Rise symmetrical. Breath sounds clear. HEART: S1, S2. ABDOMEN: Soft, bowel sounds present. EXTREMITIES: Right lower extremity erythema and swelling below- knee, with pain on palpation. ASSESSMENT: 1. Right lower extremity cellulitis. 2. Methicillin-resistant Staphylococcus aureus nares colonization. PLAN: The patient remains stable, on appropriate coverage. So far there is no evidence of a fracture or for DVT. Will continue keeping his right lower extremity elevated. Follow Podiatry recommendations and await for clinical improvement. Dictated By: Jaylen Siu NP /bridget/laureen /Document#: [id number]
[2017-03-31] MEDS: OLANZAPINE 5 MG TAB PO SCH (20:49)
[2017-03-31 21:30] VITALS: BP 116/61; RESP 20
[2017-04-01 04:11] LABS: BASOPHIL # 0.1 10^3/ul (0.0-0.1); BASOPHILS % 0.8 % (0.0-2.0); EOSINOPHILS # 0.3 10^3/ul (0.0-0.5); EOSINOPHILS % 4.5 % (0.0-7.0); HEMATOCRIT 37.6 % (42.0-52.0); HEMOGLOBIN 12.1 g/dl (14.0-18.0); LYMPHOCYTES % 39.4 % (15.0-51.0); MEAN CORPUSCULAR HEMOGLOBIN 28.4 pg (29.0-33.0); MEAN CORPUSCULAR HGB CONC 32.2 g/dl (32.0-37.0); MEAN CORPUSCULAR VOLUME 88.3 fl (82.0-101.0); MEAN PLATELET VOLUME 10.1 fl (7.4-10.4); MONOCYTE # 0.6 10^3/ul (0.3-0.9); MONOCYTES % 7.8 % (0.0-11.0); PLATELET COUNT 267 10^3/UL (140-415); RED BLOOD COUNT 4.26 10^6/ul (4.70-6.10); RED CELL DISTRIBUTION WIDTH 13.4 % (11.5-14.5); WHITE BLOOD COUNT 7.5 10^3/ul (4.8-10.8)
[2017-04-01] MEDS: VANCOMYCIN 1 GM in NS 250 ML IVPB SCH ×3 (05:23→21:30)
[2017-04-01] MEDS: PIPER-TAZO 3.375 GM IV (PMX) 100 ML IVPB SCH (07:38)
[2017-04-01 08:27] VITALS: BP 117/59; RESP 18
[2017-04-01] MEDS: MUPIROCIN 2% 22 GM OINT TOP SCH ×2 (09:11→22:00)
[2017-04-01] MEDS: BUPROPION (XL) 150 MG TAB PO SCH (09:11)
[2017-04-01] MEDS: BUSPIRONE 5 MG TAB PO SCH ×2 (09:11→21:35)
[2017-04-01] MEDS: DOCUSATE SODIUM 100 MG CAP PO SCH ×2 (09:11→21:00)
[2017-04-01] MEDS: morphine 2 MG INJ IV PRN (09:11)
[2017-04-01] MEDS: FAMOTIDINE 20 MG TAB PO SCH ×2 (09:11→21:31)
[2017-04-01] MEDS: ENOXAPARIN 40 MG/0.4 ML SYG SC SCH (09:14)
[2017-04-01 14:00] VITALS: BP 113/58; RESP 20
--- NOTE | 2017-04-01 15:18 | CONS ---
Date/Time of Note Date/Time of Note DATE: 04/01/17 TIME: 15:15 Assessment/Plan Assessment/Plan Chief Complaint/Hosp Course Physcial exam Constitutional: alert Head: normocephalic Neck: supple Respiratory: clear to auscultation Cardiovascular: regular rate and rhythm Musculoskeletal: Rt foot warm, tender, well circumscribed wound between between 1st and 2metatarsal, left foot 1st metatarsal and 2 wound 36 y/o with 1 Cellulitis right foot. with wound inside 1st and 2nd metatarsal 2. Cellulitis left foot+1 st metatar 3. Bipolar disorder type I. 4. Anemia 5. Active Methamphetamine abuse. Problems: Assessment/Plan 1. CT scan negative for abscess or OM 2. 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 4 Zyprexa and wellbutrin XL for bipolar disorder 5 GI/ DVT prophylaxsis Problems: Consultation Date/Type/Reason Admit Date/Time Mar 27, 2017 at 23:10 Initial Consult Date 24 HR Interval Summary Free Text/Dictation Sometimes pain in left foot Exam/Review of Systems Vital Signs Vitals Vital Signs Date Time Temp Pulse Resp B/P Pulse Ox O2 Delivery O2 Flow Rate FiO2 04/01/17 08:27 98.6 73 18 117/59 96 Intake and Output 03/31/17 03/31/17 04/01/17 15:00 23:00 07:00 Intake Total 100 ml 1880 ml 450 ml Output Total 1800 ml Balance 100 ml 80 ml 450 ml Results Result Diagram: 04/01/17 0343 03/30/17 0455 Results 24 hrs Laboratory Tests Test 04/01/17 03:43 White Blood Count 7.5 Red Blood Count 4.26 L Hemoglobin 12.1 L Hematocrit 37.6 L Mean Corpuscular Volume 88.3 Mean Corpuscular Hemoglobin 28.4 L Mean Corpuscular Hemoglobin Concent 32.2 Red Cell Distribution Width 13.4 Platelet Count 267 Mean Platelet Volume 10.1 Neutrophils % 47.0 Lymphocytes % 39.4 Monocytes % 7.8 Eosinophils % 4.5 Basophils % 0.8 Nucleated Red Blood Cells % 0.0 Neutrophils # (Manual) 4 Lymphocytes # 3.0 H Monocytes # 0.6 Eosinophils # 0.3 Basophils # 0.1 Nucleated Red Blood Cells # 0.0 Vancomycin Level Trough 10.8 Medications Medications Current Medications Acetaminophen (Tylenol Tab) 650 mg Q4H PRN PO for pain 1-4 or fever; Start at 00:30 Ibuprofen (Motrin) 400 mg Q4 PRN PO for pain 4-7; Start 03/28/17 at 00:30 Ondansetron HCl (Zofran Inj) 4 mg Q4H PRN IV NAUSEA AND/OR VOMITING; Start at 00:30 Docusate Sodium (Colace) 100 mg BID PO Last administered on 04/01/17 09:11; Admin Dose 100 MG; Start 03/28/17 at 09:00 Morphine Sulfate (morphine) 2 mg Q4H PRN IV PAIN LEVEL 8-10 Last administered on 04/01/17 09:11; Admin Dose 2 MG; Start 03/28/17 at 04:30 Bupropion HCl (Wellbutrin Xl) 150 mg DAILY PO Last administered on 04/01/17 09 :11; Admin Dose 150 MG; Start 03/28/17 at 13:00 Buspirone HCl (Buspar) 5 mg BID PO Last administered on 04/01/17 09:11; Admin Dose 5 MG; Start 03/28/17 at 14:00 Famotidine (Pepcid) 20 mg BID PO Last administered on 04/01/17 09:11; Admin Dose 20 MG; Start 03/28/17 at 21:00 Mupirocin 1 applic 1 applic BID TOP Last administered on 04/01/17 09:11; Admin Dose 1 APPLIC; Start 03/29/17 at 21:00 Vancomycin HCl (Vancocin) 250 ml @ 125 mls/hr Q8H IVPB Last administered on 12:32; Admin Dose 125 MLS/HR; Start 03/29/17 at 21:00 Olanzapine (Zyprexa) 10 mg QHS PO Last administered on 03/31/17 20:49; Admin Dose 10 MG; Start 03/30/17 at 21:00 Enoxaparin Sodium (Lovenox) 40 mg DAILY SC Last administered on 04/01/17 09:14 ; Admin Dose 40 MG; Start 03/30/17 at 15:30 SUKHDEV TRAN MD Apr 01, 2017 15:18
--- NOTE | 2017-04-01 15:53 | CONS ---
Date/Time of Note Date/Time of Note DATE: 04/01/17 TIME: 15:51 Assessment/Plan Assessment/Plan Chief Complaint/Hosp Course SUBJECTIVE DATA: No events overnight. The patient is alert, no fevers, nad Microbiology: Nares swab came back positive for MRSA. Antimicrobials: Vancomycin, Zosyn, topical Bactroban. Diagnostics: Lower extremity CT scan revealed mild to moderate right, greater than left, subcutaneous soft tissue swelling at the lower calf, ankle and foot. No evidence of soft tissue gas or drainable fluid collection. No acute osseus abnormality, or CT scan evidence of osteomyelitis. PHYSICAL EXAMINATION: GENERAL: Well developed, well nourished, middle-aged man who is alert, in no distress. HEENT: Head atraumatic, normocephalic. Sclerae anicteric. Buccal mucosa pink. NECK: Supple. CHEST: Rise symmetrical. Breath sounds clear. HEART: S1, S2. ABDOMEN: Soft, bowel sounds present. EXTREMITIES: Right lower extremity erythema and swelling resolved ASSESSMENT: 1. Right lower extremity cellulitis==> resolving. 2. Methicillin-resistant Staphylococcus aureus nares colonization. PLAN: The patient remains stable, ok dc on oral Bactrim for 7 more days Problems: Consultation Date/Type/Reason Admit Date/Time Mar 27, 2017 at 23:10 Initial Consult Date Type of Consultation: ID Exam/Review of Systems Vital Signs Vitals Vital Signs Date Time Temp Pulse Resp B/P Pulse Ox O2 Delivery O2 Flow Rate FiO2 04/01/17 08:27 98.6 73 18 117/59 96 Intake and Output 03/31/17 03/31/17 04/01/17 15:00 23:00 07:00 Intake Total 100 ml 1880 ml 450 ml Output Total 1800 ml Balance 100 ml 80 ml 450 ml Results Result Diagram: 04/01/17 0343 03/30/17 0455 Results 24 hrs Laboratory Tests Test 04/01/17 03:43 White Blood Count 7.5 Red Blood Count 4.26 L Hemoglobin 12.1 L Hematocrit 37.6 L Mean Corpuscular Volume 88.3 Mean Corpuscular Hemoglobin 28.4 L Mean Corpuscular Hemoglobin Concent 32.2 Red Cell Distribution Width 13.4 Platelet Count 267 Mean Platelet Volume 10.1 Neutrophils % 47.0 Lymphocytes % 39.4 Monocytes % 7.8 Eosinophils % 4.5 Basophils % 0.8 Nucleated Red Blood Cells % 0.0 Neutrophils # (Manual) 4 Lymphocytes # 3.0 H Monocytes # 0.6 Eosinophils # 0.3 Basophils # 0.1 Nucleated Red Blood Cells # 0.0 Vancomycin Level Trough 10.8 Medications Medications Current Medications Acetaminophen (Tylenol Tab) 650 mg Q4H PRN PO for pain 1-4 or fever; Start at 00:30 Ibuprofen (Motrin) 400 mg Q4 PRN PO for pain 4-7; Start 03/28/17 at 00:30 Ondansetron HCl (Zofran Inj) 4 mg Q4H PRN IV NAUSEA AND/OR VOMITING; Start at 00:30 Docusate Sodium (Colace) 100 mg BID PO Last administered on 04/01/17 09:11; Admin Dose 100 MG; Start 03/28/17 at 09:00 Morphine Sulfate (morphine) 2 mg Q4H PRN IV PAIN LEVEL 8-10 Last administered on 04/01/17 09:11; Admin Dose 2 MG; Start 03/28/17 at 04:30 Bupropion HCl (Wellbutrin Xl) 150 mg DAILY PO Last administered on 04/01/17 09 :11; Admin Dose 150 MG; Start 03/28/17 at 13:00 Buspirone HCl (Buspar) 5 mg BID PO Last administered on 04/01/17 09:11; Admin Dose 5 MG; Start 03/28/17 at 14:00 Famotidine (Pepcid) 20 mg BID PO Last administered on 04/01/17 09:11; Admin Dose 20 MG; Start 03/28/17 at 21:00 Mupirocin 1 applic 1 applic BID TOP Last administered on 04/01/17 09:11; Admin Dose 1 APPLIC; Start 03/29/17 at 21:00 Vancomycin HCl (Vancocin) 250 ml @ 125 mls/hr Q8H IVPB Last administered on 12:32; Admin Dose 125 MLS/HR; Start 03/29/17 at 21:00 Olanzapine (Zyprexa) 10 mg QHS PO Last administered on 03/31/17 20:49; Admin Dose 10 MG; Start 03/30/17 at 21:00 Enoxaparin Sodium (Lovenox) 40 mg DAILY SC Last administered on 04/01/17t 09:14 ; Admin Dose 40 MG; Start 03/30/17 at 15:30 ARCHANA DELUNA NP Apr 01, 2017 15:53
--- NOTE | 2017-04-01 17:12 | PN ---
Date/Time of Note Date/Time of Note DATE: 04/01/17 TIME: 17:10 Assessment/Plan Lines/Catheters IV Catheter Type (from [facility]): Saline Lock [place] in Place (from [facility]): No Assessment/Plan Problems: (1) Open wound of right foot (2) Open wound of left foot Assessment/Plan Daily dressing change bilateral feet. Silver Silvadene ointment to the wounds daily. Change bandages daily. Weightbearing to tolerance with postop shoes to both feet. Patient will be followed in-house. Exam/Review of Systems Vital Signs Vitals Vital Signs Date Time Temp Pulse Resp B/P Pulse Ox O2 Delivery O2 Flow Rate FiO2 04/01/17 14:00 98.1 73 20 113/58 97 Intake and Output 03/31/17 03/31/17 04/01/17 15:00 23:00 07:00 Intake Total 100 ml 1880 ml 450 ml Output Total 1800 ml Balance 100 ml 80 ml 450 ml Results Result Diagram: 04/01/17 0343 03/30/17 0455 PRADIP LOVE DPM Apr 01, 2017 17:12
[2017-04-01 20:00] VITALS: BP 123/81; RESP 18
[2017-04-01] MEDS: OLANZAPINE 5 MG TAB PO SCH (21:31)
[2017-04-02 02:00] VITALS: BP 107/62; RESP 19
[2017-04-02] MEDS: VANCOMYCIN 1 GM in NS 250 ML IVPB SCH ×3 (04:07→20:17)
[2017-04-02 07:40] VITALS: BP 112/65; RESP 16
[2017-04-02] MEDS: SILVER SULFADIAZINE 1% 25 GM CR TOP SCH (09:28)
[2017-04-02] MEDS: ENOXAPARIN 40 MG/0.4 ML SYG SC SCH (09:28)
[2017-04-02] MEDS: FAMOTIDINE 20 MG TAB PO SCH ×2 (09:29→20:18)
[2017-04-02] MEDS: BUPROPION (XL) 150 MG TAB PO SCH (09:29)
[2017-04-02] MEDS: DOCUSATE SODIUM 100 MG CAP PO SCH ×2 (09:29→20:19)
[2017-04-02] MEDS: BUSPIRONE 5 MG TAB PO SCH ×2 (09:29→20:17)
[2017-04-02] MEDS: MUPIROCIN 2% 22 GM OINT TOP SCH ×2 (09:31→20:18)
[2017-04-02] MEDS: morphine 2 MG INJ IV PRN ×2 (11:06→20:26)
[2017-04-02 14:09] VITALS: BP 108/57; RESP 16
--- NOTE | 2017-04-02 18:05 | PN ---
Date/Time of Note Date/Time of Note DATE: 04/02/17 TIME: 18:03 Assessment/Plan VTE Prophylaxis VTE Prophylaxis Intervention: LMWH Lines/Catheters IV Catheter Type (from Nrs): Saline Lock Urinary Cath still in place: No Assessment/Plan Chief Complaint/Hosp Course Physcial exam Constitutional: alert Head: normocephalic Neck: supple Respiratory: clear to auscultation Cardiovascular: regular rate and rhythm Musculoskeletal: Rt foot warm, tender, well circumscribed wound between between 1st and 2metatarsal, left foot 1st metatarsal and 2 wound 36 y/o with 1 Cellulitis right foot. with wound inside 1st and 2nd metatarsal 2. Cellulitis left foot+1 st metatar 3. Bipolar disorder type I. 4. Anemia 5. Active Methamphetamine abuse. Problems: Assessment/Plan 1. CT scan negative for abscess or OM 2. 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 4 Zyprexa and wellbutrin XL for bipolar disorder 5 GI/ DVT prophylaxsis 6 Possible dc tmw Problems: Subjective 24 Hr Interval Summary Free Text/Dictation Pain in rt and left foot Exam/Review of Systems Vital Signs Vitals Vital Signs Date Time Temp Pulse Resp B/P Pulse Ox O2 Delivery O2 Flow Rate FiO2 04/02/17 14:09 98.0 16 108/57 98 04/02/17 07:40 68 Intake and Output 04/01/17 04/01/17 04/02/17 15:00 23:00 07:00 Intake Total 600 ml 1150 ml Balance 600 ml 1150 ml Results Result Diagram: 04/01/17 0343 03/30/17 0455 Medications Medications Current Medications Acetaminophen (Tylenol Tab) 650 mg Q4H PRN PO for pain 1-4 or fever; Start at 00:30 Ibuprofen (Motrin) 400 mg Q4 PRN PO for pain 4-7; Start 03/28/17 at 00:30 Ondansetron HCl (Zofran Inj) 4 mg Q4H PRN IV NAUSEA AND/OR VOMITING; Start at 00:30 Docusate Sodium (Colace) 100 mg BID PO Last administered on 04/02/17t 09:29; Admin Dose 100 MG; Start 03/28/17 at 09:00 Morphine Sulfate (morphine) 2 mg Q4H PRN IV PAIN LEVEL 8-10 Last administered on 04/02/17 11:06; Admin Dose 2 MG; Start 03/28/17 at 04:30 Bupropion HCl (Wellbutrin Xl) 150 mg DAILY PO Last administered on 04/02/17 09 :29; Admin Dose 150 MG; Start 03/28/17 at 13:00 Buspirone HCl (Buspar) 5 mg BID PO Last administered on 04/02/17 09:29; Admin Dose 5 MG; Start 03/28/17 at 14:00 Famotidine (Pepcid) 20 mg BID PO Last administered on 04/02/17 09:29; Admin Dose 20 MG; Start 03/28/17 at 21:00 Mupirocin 1 applic 1 applic BID TOP Last administered on 04/02/17 09:31; Admin Dose 1 APPLIC; Start 03/29/17 at 21:00 Vancomycin HCl (Vancocin) 250 ml @ 125 mls/hr Q8H IVPB Last administered on 13:09; Admin Dose 125 MLS/HR; Start 03/29/17 at 21:00 Olanzapine (Zyprexa) 10 mg QHS PO Last administered on 04/01/17 21:31; Admin Dose 10 MG; Start 03/30/17 at 21:00 Enoxaparin Sodium (Lovenox) 40 mg DAILY SC Last administered on 04/02/17 09:28 ; Admin Dose 40 MG; Start 03/30/17 at 15:30 Silver Sulfadiazine (Thermazene 1% 25 Gm) 1 applic DAILY TOP Last administered on 04/02/17 09:28; Admin Dose 1 APPLIC; Start 04/02/17 at 09:00 SUKHDEV TRAN MD Apr 02, 2017 18:04
[2017-04-02] MEDS: OLANZAPINE 5 MG TAB PO SCH (20:18)
[2017-04-02 20:46] VITALS: BP 119/59; RESP 19
[2017-04-03 02:00] VITALS: BP 96/52; RESP 18
[2017-04-03] MEDS: VANCOMYCIN 1 GM in NS 250 ML IVPB SCH ×2 (04:06→13:11)
[2017-04-03 06:09] LABS: BASOPHIL # 0.1 10^3/ul (0.0-0.1); BASOPHILS % 0.8 % (0.0-2.0); EOSINOPHILS # 0.3 10^3/ul (0.0-0.5); EOSINOPHILS % 4.4 % (0.0-7.0); HEMATOCRIT 37.9 % (42.0-52.0); LYMPHOCYTES # 2.9 10^3/ul (0.8-2.9); LYMPHOCYTES % 41.3 % (15.0-51.0); MEAN CORPUSCULAR HEMOGLOBIN 28.1 pg (29.0-33.0); MEAN CORPUSCULAR HGB CONC 31.7 g/dl (32.0-37.0); MEAN CORPUSCULAR VOLUME 88.8 fl (82.0-101.0); MONOCYTE # 0.7 10^3/ul (0.3-0.9); MONOCYTES % 9.8 % (0.0-11.0); NEUTROPHILS % 42.1 % (39.0-77.0); PLATELET COUNT 271 10^3/UL (140-415); RED BLOOD COUNT 4.27 10^6/ul (4.70-6.10); RED CELL DISTRIBUTION WIDTH 13.3 % (11.5-14.5); WHITE BLOOD COUNT 7.1 10^3/ul (4.8-10.8)
[2017-04-03 06:44] LABS: CALCIUM 9.4 mg/dl (8.4-10.2); CREATININE 0.73 mg/dl (0.61-1.24)
[2017-04-03 07:35] VITALS: BP 109/59; RESP 16
[2017-04-03] MEDS: ENOXAPARIN 40 MG/0.4 ML SYG SC SCH (09:00)
[2017-04-03] MEDS ORDERED: TRIMETHOPRIM/SULFAMETHOX (SS) TAB PO SCH ×2 (09:00→21:00)
[2017-04-03] MEDS: BUSPIRONE 5 MG TAB PO SCH (09:43)
[2017-04-03] MEDS: BUPROPION (XL) 150 MG TAB PO SCH (09:43)
[2017-04-03] MEDS: FAMOTIDINE 20 MG TAB PO SCH (09:43)
[2017-04-03] MEDS: DOCUSATE SODIUM 100 MG CAP PO SCH (09:43)
[2017-04-03] MEDS: SILVER SULFADIAZINE 1% 25 GM CR TOP SCH (09:44)
[2017-04-03] MEDS: MUPIROCIN 2% 22 GM OINT TOP SCH (09:45)
--- NOTE | 2017-04-03 10:44 | PN ---
Date/Time of Note Date/Time of Note DATE: 04/03/17 TIME: 10:41 Assessment/Plan VTE Prophylaxis VTE Prophylaxis Intervention: ambulation Lines/Catheters IV Catheter Type (from [facility]): Saline Lock Urinary Cath still in place: No Assessment/Plan Chief Complaint/Hosp Course 1. Cellulitis right foot. Numerous wounds right foot.Resolved 2. Cellulitis left foot. Numerous wounds left foot.Resolved 3. Bipolar disorder type I, stable on medications 4. Anemia 5. Active Methamphetamine abuse. Problems: Assessment/Plan 1. Discharge home 2. continue a/b and wound custodial 3. Pt is medically cleared and capable to participate in active residential treatment Subjective 24 Hr Interval Summary Constitutional: improved, no complaints Respiratory: no complaints Cardiovascular: no complaints Musculoskeletal: bone/joint pain, No back pain, No neck pain, No no complaints, No other, No restricted range of motion, No swelling Exam/Review of Systems Vital Signs Vitals Vital Signs Date Time Temp Pulse Resp B/P Pulse Ox O2 Delivery O2 Flow Rate FiO2 04/03/17 07:35 97.6 62 16 109/59 95 Intake and Output 04/02/17 04/02/17 04/03/17 15:00 23:00 07:00 Intake Total 1400 ml 800 ml Balance 1400 ml 800 ml Exam Constitutional: alert, oriented Neck: supple Respiratory: clear to auscultation Cardiovascular: regular rate and rhythm Additional Comments scabs on the both feet Results Result Diagram: 04/03/17 0456 04/03/17 0456 Results 24 hrs Laboratory Tests Test 04/03/17 04:56 White Blood Count 7.1 Red Blood Count 4.27 L Hemoglobin 12.0 L Hematocrit 37.9 L Mean Corpuscular Volume 88.8 Mean Corpuscular Hemoglobin 28.1 L Mean Corpuscular Hemoglobin Concent 31.7 L Red Cell Distribution Width 13.3 Platelet Count 271 Mean Platelet Volume 10.0 Neutrophils % 42.1 Lymphocytes % 41.3 Monocytes % 9.8 Eosinophils % 4.4 Basophils % 0.8 Nucleated Red Blood Cells % 0.0 Neutrophils # (Manual) 3.0 Lymphocytes # 2.9 Monocytes # 0.7 Eosinophils # 0.3 Basophils # 0.1 Nucleated Red Blood Cells # 0.0 Sodium Level 146 H Potassium Level 4.0 Chloride Level 104 Carbon Dioxide Level 27 Anion Gap 19 H Blood Urea Nitrogen 10 Creatinine 0.73 Glucose Level 84 Calcium Level 9.4 Medications Medications Current Medications Acetaminophen (Tylenol Tab) 650 mg Q4H PRN PO for pain 1-4 or fever; Start at 00:30 Ibuprofen (Motrin) 400 mg Q4 PRN PO for pain 4-7; Start 03/28/17 at 00:30 Ondansetron HCl (Zofran Inj) 4 mg Q4H PRN IV NAUSEA AND/OR VOMITING; Start at 00:30 Docusate Sodium (Colace) 100 mg BID PO Last administered on 04/03/17 09:43; Admin Dose 100 MG; Start 03/28/17 at 09:00 Morphine Sulfate (morphine) 2 mg Q4H PRN IV PAIN LEVEL 8-10 Last administered on 04/02/17 20:26; Admin Dose 2 MG; Start 03/28/17 at 04:30 Bupropion HCl (Wellbutrin Xl) 150 mg DAILY PO Last administered on 04/03/17 09 :43; Admin Dose 150 MG; Start 03/28/17 at 13:00 Buspirone HCl (Buspar) 5 mg BID PO Last administered on 04/03/17 09:43; Admin Dose 5 MG; Start 03/28/17 at 14:00 Famotidine (Pepcid) 20 mg BID PO Last administered on 04/03/17 09:43; Admin Dose 20 MG; Start 03/28/17 at 21:00 Mupirocin 1 applic 1 applic BID TOP Last administered on 04/03/17 09:45; Admin Dose 1 APPLIC; Start 03/29/17 at 21:00 Vancomycin HCl (Vancocin) 250 ml @ 125 mls/hr Q8H IVPB Last administered on 04:06; Admin Dose 125 MLS/HR; Start 03/29/17 at 21:00 Olanzapine (Zyprexa) 10 mg QHS PO Last administered on 04/02/17 20:18; Admin Dose 10 MG; Start 03/30/17 at 21:00 Enoxaparin Sodium (Lovenox) 40 mg DAILY SC Last administered on 04/02/17 09:28 ; Admin Dose 40 MG; Start 03/30/17 at 15:30 Silver Sulfadiazine (Thermazene 1% 25 Gm) 1 applic DAILY TOP Last administered on 04/03/17t 09:44; Admin Dose 1 APPLIC; Start 04/02/17 at 09:00 Trimethoprim/ Sulfamethoxazole (Bactrim (Ss)) 1 tab BID PO ; Start 04/03/17 at 21:00 CHRISSY GREENE Apr 03, 2017 10:43
--- NOTE | 2017-04-03 11:16 | PDOCDIS ---
Discharge Instructions DIAGNOSIS Discharge Diagnosis BOth feet wounds and cellulitis CONDITION Patient Condition: Good HOME CARE INSTRUCTIONS: Diet Instructions: Regular ACTIVITY: Activity Restrictions: Slowly Increase Activity FOLLOW UP/APPOINTMENTS Follow-up Plan [address] Sales, psychiatrist OTHER ORDERS: Other Orders: wound care every day with silvadene cream on scabs CHRISSY GREENE Apr 03, 2017 11:16
[2017-04-03] MEDS ORDERED: OLAN5TAB5 PO (11:18)
[2017-04-03] MEDS ORDERED: IBUP400T22 PO (11:18)
[2017-04-03] MEDS ORDERED: BACTRIM PO (11:18)
[2017-04-03] MEDS ORDERED: BUPR150T6 PO (11:18)
[2017-04-03] MEDS ORDERED: BUS5 PO (11:18)
[2017-04-03] MEDS ORDERED: SSD1C20 TOP (11:18)
[2017-04-03] MEDS ORDERED: MUPI22OI2 TOP (11:18)
--- NOTE | 2017-04-03 11:33 | QN ---
Documentation Comment Pt is medically cleared and capable to participate in active residential treatment center SUKHDEV Quijano M.D, MD Apr 03, 2017 11:33
[2017-04-03 14:26] VITALS: BP 120/56; RESP 16
--- NOTE | 2017-04-03 15:45 | CONS ---
Date/Time of Note Date/Time of Note DATE: 04/03/17 TIME: 15:44 Assessment/Plan Assessment/Plan Chief Complaint/Hosp Course SUBJECTIVE DATA: No events overnight. The patient is alert, no fevers, nad Microbiology: Nares swab came back positive for MRSA. Antimicrobials: Bactrim Diagnostics: Lower extremity CT scan revealed mild to moderate right, greater than left, subcutaneous soft tissue swelling at the lower calf, ankle and foot. No evidence of soft tissue gas or drainable fluid collection. No acute osseus abnormality, or CT scan evidence of osteomyelitis. PHYSICAL EXAMINATION: GENERAL: Well developed, well nourished, middle-aged man who is alert, in no distress. HEENT: Head atraumatic, normocephalic. Sclerae anicteric. Buccal mucosa pink. NECK: Supple. CHEST: Rise symmetrical. Breath sounds clear. HEART: S1, S2. ABDOMEN: Soft, bowel sounds present. EXTREMITIES: No edema, no erythema ASSESSMENT: 1. Status post right lower extremity cellulitis 2. Methicillin-resistant Staphylococcus aureus nares colonization. PLAN: The patient remains stable, ok dc on oral Bactrim for 5 more days Discussed with staff Problems: Consultation Date/Type/Reason Admit Date/Time Mar 27, 2017 at 23:10 Type of Consultation: ID Exam/Review of Systems Vital Signs Vitals Vital Signs Date Time Temp Pulse Resp B/P Pulse Ox O2 Delivery O2 Flow Rate FiO2 04/03/17 14:26 97.4 78 16 120/56 96 Intake and Output 04/02/17 04/02/17 04/03/17 15:00 23:00 07:00 Intake Total 1400 ml 800 ml Balance 1400 ml 800 ml Results Result Diagram: 04/03/17 0456 04/03/17 0456 Results 24 hrs Laboratory Tests Test 04/03/17 04:56 White Blood Count 7.1 Red Blood Count 4.27 L Hemoglobin 12.0 L Hematocrit 37.9 L Mean Corpuscular Volume 88.8 Mean Corpuscular Hemoglobin 28.1 L Mean Corpuscular Hemoglobin Concent 31.7 L Red Cell Distribution Width 13.3 Platelet Count 271 Mean Platelet Volume 10.0 Neutrophils % 42.1 Lymphocytes % 41.3 Monocytes % 9.8 Eosinophils % 4.4 Basophils % 0.8 Nucleated Red Blood Cells % 0.0 Neutrophils # (Manual) 3.0 Lymphocytes # 2.9 Monocytes # 0.7 Eosinophils # 0.3 Basophils # 0.1 Nucleated Red Blood Cells # 0.0 Sodium Level 146 H Potassium Level 4.0 Chloride Level 104 Carbon Dioxide Level 27 Anion Gap 19 H Blood Urea Nitrogen 10 Creatinine 0.73 Glucose Level 84 Calcium Level 9.4 Medications Medications Current Medications Acetaminophen (Tylenol Tab) 650 mg Q4H PRN PO for pain 1-4 or fever; Start at 00:30 Ibuprofen (Motrin) 400 mg Q4 PRN PO for pain 4-7; Start 03/28/17 at 00:30 Ondansetron HCl (Zofran Inj) 4 mg Q4H PRN IV NAUSEA AND/OR VOMITING; Start at 00:30 Docusate Sodium (Colace) 100 mg BID PO Last administered on 04/03/17 09:43; Admin Dose 100 MG; Start 03/28/17 at 09:00 Morphine Sulfate (morphine) 2 mg Q4H PRN IV PAIN LEVEL 8-10 Last administered on 04/02/17 20:26; Admin Dose 2 MG; Start 03/28/17 at 04:30 Bupropion HCl (Wellbutrin Xl) 150 mg DAILY PO Last administered on 04/03/17 09 :43; Admin Dose 150 MG; Start 03/28/17 at 13:00 Buspirone HCl (Buspar) 5 mg BID PO Last administered on 04/03/17 09:43; Admin Dose 5 MG; Start 03/28/17 at 14:00 Famotidine (Pepcid) 20 mg BID PO Last administered on 04/03/17 09:43; Admin Dose 20 MG; Start 03/28/17 at 21:00 Mupirocin 1 applic 1 applic BID TOP Last administered on 04/03/17 09:45; Admin Dose 1 APPLIC; Start 03/29/17 at 21:00 Vancomycin HCl (Vancocin) 250 ml @ 125 mls/hr Q8H IVPB Last administered on 13:11; Admin Dose 125 MLS/HR; Start 03/29/17 at 21:00 Olanzapine (Zyprexa) 10 mg QHS PO Last administered on 04/02/17 20:18; Admin Dose 10 MG; Start 03/30/17 at 21:00 Enoxaparin Sodium (Lovenox) 40 mg DAILY SC Last administered on 04/02/17 09:28 ; Admin Dose 40 MG; Start 03/30/17 at 15:30 Silver Sulfadiazine (Thermazene 1% 25 Gm) 1 applic DAILY TOP Last administered on 04/03/17 09:44; Admin Dose 1 APPLIC; Start 04/02/17 at 09:00 Trimethoprim/ Sulfamethoxazole (Bactrim (Ss)) 1 tab BID PO ; Start 04/03/17 at 21:00 ARCHANA DELUNA NP Apr 03, 2017 15:45
--- NOTE | 2017-04-04 11:52 | DS ---
Date/Time of Note Date/Time of Note DATE: 04/04/17 TIME: 11:40 Discharge Summary Admission/Discharge Info Admit Date/Time Mar 27, 2017 at 23:10 Discharge Date/Time Apr 03, 2017 at 20:12 Discharge Diagnosis BOth feet wounds and cellulitis Patient Condition: Good Consults Dr Barry, accounts payable clerk Procedures Twice a day wound care Hx of Present Illness 36 yo male with history of crystal meth abuse for 8 years presented himself in ED [facility]. He was evaluated and transferred to [facility] per insurance coverage. Pt reported that 03/24 he start feeling pain in right foot. He denied trauma, however did not exclude it because he might be high on drugs. Upon presenting to [facility] ER he reported foot ededma, pain and gait imbalance. His left foot has similar wounds and pain, started 1 week ago. denied any trauma. 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 Hospital Course 36 yo male with history of crystal meth abuse for 8 years presented himself in ED [facility]. He was evaluated and transferred to [facility] per insurance coverage. Pt reported that 03/24/17 he started feeling pain in right foot. Upon presenting to [facility] ER he reported foot edema, pain and gait imbalance. His left foot has similar wounds and pain, started 1 week ago. Pt denied any trauma. Pt was admitted with bilateral cellulitis and numerous open wounds to Med/surg unit. He also has bipolar disorder. He had no no medications taking regularly at home. Was started on Zyprexa, Wellbutrin and Buspar. During the hospital stay he reported no changes in mood, he said he will take medications regularly. Lower extremity CT scan revealed mild to moderate right, greater than left, subcutaneous soft tissue swelling at the lower calf, ankle and foot. No evidence of soft tissue gas or drainable fluid collection. No acute osseus abnormality, or CT scan evidence of osteomyelitis. During the hospital stay he underwent daily dressing with Silver Silvadene ointment daily on lower extremities. During the hospital stay he was found to be MRSA positive and contact isolation was started. Education were given to patient. Started Bactrim PO will be continued post discharge along with wound dressing changes. In stable condition pt was discharged to a private Rehab with all medications. Home Meds Active Scripts Trimethoprim-Sulfamethoxazole* (Bactrim*) 400-80 Mg Tab, 1 TAB PO BID for 7 Days , TAB Prov:CHRISSY GREENE 04/03/17 Silver Sulfadiazine (THERMAZENE 1% 25 GM) 1 Applic Cr, 1 APPLIC TOP DAILY for 14 Days Prov:CHRISSY GREENE 04/03/17 Olanzapine* (Zyprexa*) 5 Mg Tablet, 10 MG PO QHS for 30 Days, TAB Prov:CHRISSY GREENE 04/03/17 Mupirocin* (Bactroban*) 2% -22 Gram Oint...g., 1 APPLIC TOP BID for 14 Days Prov:CHRISSY GREENE 04/03/17 Ibuprofen* (Ibuprofen*) 400 Mg Tablet, 400 MG PO Q4 Y for for pain 4-7 for 14 Days, TAB Prov:CHRISSY GREENE 04/03/17 Buspirone Hcl* (Buspar*) 5 Mg Tab, 5 MG PO BID for 30 Days, TAB Prov:CHRISSY GREENE 04/03/17 Bupropion Hcl* (Bupropion XL*) 150 Mg Tab.er.24h, 150 MG PO DAILY for 30 Days Prov:CHRISSY GREENE 04/03/17 Follow-up Plan private rehabilitation, 1 week follow up with primary psychiatrist dr Shine Primary Care Provider Not On Staff Doctor CHRISSY GREENE Apr 04, 2017 11:51
== END 2017-04-03 20:12 | disposition home or self-care (01) | DRG 603 ==
LOC: PP2 23:10
PROVIDERS: ADMIT Internal Medicine Nephrology; ATTEND Internal Medicine Nephrology
DX: L03.116 Cellulitis of left lower limb (principal); F15.10 Other stimulant abuse, uncomplicated; F31.9 Bipolar disorder, unspecified; L03.115 Cellulitis of right lower limb; D64.9 Anemia, unspecified; Z22.322 Carrier or suspected carrier of Methicillin resistant Staphylococcus aureus; S90.922A Unspecified superficial injury of left foot, initial encounter; S90.921A Unspecified superficial injury of right foot, initial encounter
CPT/HCPCS: 73700; 80048; 80202; 85025; 87081; 93922; J1650; J2270; J2543; J3370; J7050